=== PATIENT | male | born 2005 | race Caucasian/White ===

== ENCOUNTER 2025-08-04 19:52 | Emergency (ER) | payer OTHER, SELFPAY ==
[2025-08-04] VITALS (7 sets, daily range): BP systolic 127–152; BP diastolic 84–96; BMI 18.8
[2025-08-04 20:11] LABS: Hematocrit 44.5 % (39.0-52.0); Hemoglobin 15.9 g/dL (13.0-18.0); Mean Corp Hgb Conc. 35.7 g/dL (33.0-37.0); Mean Corpuscular Volume 87.1 fL (80.0-94.0); Nucleated Red Blood Cells % 0 % (-); Platelet Count 214 10^3/uL (130-400); Red Cell Dist. Width 11.4 % (11.5-14.5)
--- NOTE | 2025-08-04 20:13 | PTCARENOTE ---
patient presents to the ED with complaint of syncopal episode witnessed by family lasting about 3 minutes. patient states before the event happened he felt as if he was going to pass out. patient denies history of syncopal episodes, but states he
has had episodes in the past where he has felt faint but never lost consciousness. patient denies chest pain or dizziness.
[2025-08-04 20:37] LABS: ALT (SGPT) 22 U/L (0-50); AST (SGOT) 32 U/L (17-59); Albumin 5.2 g/dl (3.5-5.0); Alkaline Phosphatase 67 U/L (38-126); Blood Urea Nitrogen 8 mg/dl (9-20); Calcium 9.8 mg/dl (8.4-10.2); Carbon Dioxide 29 mmol/L (22-30); Chloride 99 mmol/L (98-107); Estimated Creatinine Clearance 96 ml/min; Glucose 109 mg/dl (70-99); Potassium 4.9 mmol/L (3.5-5.1); Sodium 137 mmol/L (135-145); Total Protein 7.6 g/dl (6.3-8.2); eGFR > 60.00
--- NOTE | 2025-08-04 22:54 | ED.GENMED ---
History of Present Illness
General
Chief Complaint: Fainting/Passed Out
Source: patient and family
Exam Limitations: none
Time Seen by Provider: 08/04/25 22:19
Nursing documentation reviewed up to this point in time: agreed with
History of Present Illness
History of Present Illness:
19-year-old male with history of ADHD who presents to the ER with his mother and father for evaluation after syncopal/near syncopal event. Patient reports that around 6 PM this evening he came downstairs and was feeling very lightheaded, laid down
on the counter and nearly passed out. He says that he felt dizzy and was diaphoretic, mildly nauseated. Mother says that he was pale and clammy. It sounds like the entire to the episode lasted for 20 to 30 minutes. Mother is a nurse and was able
to check his vital signs and says that he was normotensive and his heart rate was in the 90s. Patient did not have any chest pain or palpitations, did not have any shortness of breath. No headache. He says that he is completely asymptomatic here
in the ER. Patient says that he had 2 energy drinks earlier today but not have any food today, mother thought that he was hypoglycemic and gave him some food and this seemed to help with his symptoms. Patient has not had any similar issues in the
past. No family history of early cardiac but mother says she has a history of SVT status post ablation. Patient did have a benign murmur as a child and had an echocardiogram in his teens that was reportedly normal according to mother.
Review of Systems
Review of Systems
All Other Systems: ROS reviewed and negative except as documented in HPI and ROS
Constitutional: Denies fever
Respiratory: Denies trouble breathing
Cardiac: Reports diaphoresis and syncope; Denies chest pain or palpitations
ABD/GI: Reports nausea; Denies abdominal pain
: Denies flank pain
Neurological: Reports dizzy; Denies headache
Phy Exam
Physical Exam
Physical Exam:
General: Awake, alert, oriented x3; no acute distress
Head: Normocephalic, atraumatic
Eyes: Conjunctiva normal, pupils equal round and reactive to light bilaterally
Throat: Airway intact, handling secretions
Neck: Trachea midline, supple without meningismus
Lungs: Clear to auscultation bilaterally, no wheezing, rales, rhonchi
Heart: Regular rate and rhythm, no murmurs, gallops, or rubs
Neuro: Cranial nerves grossly intact, speech fluid
Skin: Warm and dry
Extremities: No edema in extremities, equal pulses in all extremities
Scores
Heart Failure Risk
Heart Failure Risk Score: Not Applicable
Heart Score for Chest Pain Patients
STEMI patient?: Not applicable
Withdrawal Assessment of Alcohol
Withdrawal Assessment Completed?: Not applicable
Course
Orders/Labs/Results
Orders:
Orders
08/04/25 19:55
Electrocardiogram (*1) Urgent
Reason for Study: Syncope
08/04/25 19:56
EKG- Treatment ONCE
08/04/25 20:03
CMP [Comprehensive Metabolic Panel] Urgent
Complete Blood Count/With Diff Urgent
Abnormal Lab Results
08/04/25
20:03
MCH 31.1 H pg
(27.0-31.0)
RDW 11.4 L %
(11.5-14.5)
Absolute Neuts (auto) 7.0 H 10^3/uL
(1.4-6.5)
Lymphocytes % 19.9 L %
(20.5-51.1)
BUN 8 L mg/dl
(9-20)
Glucose 109 H mg/dl
(70-99)
Albumin 5.2 H g/dl
(3.5-5.0)
08/04/25 20:03
08/04/25 20:03
Vital Signs
Initial and Last Documented VS:
Initial Vital Signs
BP
141/94
08/04/25 19:55
Last Documented Vital Signs
Pulse Resp BP Pulse Ox
90 25 127/93 100
08/04/25 21:00 08/04/25 21:00 08/04/25 21:00 08/04/25 21:00
MDM/Problems Addressed
Differential Diagnosis Includes:
Dysrhythmia, hypoglycemia, dehydration, vasovagal episode
MDM/Problems Addressed:
19-year-old male with history of ADHD on Adderall presents to the ER for evaluation after near syncopal episode. He did not have any associated chest pain or palpitations, shortness of breath or headache and does not have any symptoms here in the ER
she is asymptomatic here. His mother is a nurse was able to check his vitals during the episode and it sounds like heart rate was in the 90s and he was normotensive. He did not eat very much today and it sounds like his symptoms improved after
mother gave him some food although it did take around 30 minutes for entire episode to resolve. Vital signs here are within acceptable range. Physical exam is as noted. His EKG here shows sinus rhythm with rate in the 90s, no acute ischemic
changes, no Brugada, no delta wave, normal QTc. No family history of early cardiac and it sounds like patient had a prior echocardiogram that was reassuring as a teenager. Labs were sent off including a CBC and a CMP showed no clinically
significant abnormalities. Overall suspect this may have been a hypoglycemic episode due to poor p.o. intake today. In my judgment he is stable for discharge, follow-up with his primary doctor as an outpatient. Patient and family comfortable with
this plan. All questions answered.
*Pulse Oximetry
SaO2: 100
Oxygen Mode of Delivery: Room air
Patient hypoxic: no (100%)
*EKG
Interpreted by ED Provider?: Yes
Heart Rate: 92
Rate: normal
Rhythm: sinus
Foss: normal axis
Interval: normal interval
QRS Pattern: normal QRS
Ischemia: no ischemia
*Critical Care Note
Total Time (30-74mins, 75-104mins- exclusive of procedures): Not Applicable
Data Reviewed
Source: patient and family
ED Attending Note
-
Portions of this chart may have been created with voice recognition software.� Occasional wrong word or��sound alike� substitutions may have occurred due to the inherent limitations of voice recognition software.
Discharge Plan
Departure
Patient with high blood pressure during this ER visit?: Yes
Discharge Problem:
Syncope
Instructions: Syncope (Fainting) (DC)
Prescriptions:
No Action
dextroamphetamine-amphetamine [Adderall] 10 mg Tablet
20 mg PO DAILY
escitalopram oxalate [Lexapro] 10 mg Tablet
10 mg PO DAILY
Referrals:
UNKNOWN - PT DOES,NOT KNOW [Family Provider]
Activity Restrictions/Additional Instructions:
Thank you for visiting the Emergency Department at [facility].
1. Please schedule a follow up appointment as directed. Call first thing tomorrow morning to make an appointment.
2. If indicated, please take your medications as instructed and indicated on discharge paperwork.
3. If any of your symptoms do not improve, or persist, or become more severe within 6-12 hours, please return to the emergency department for further care.
4. Please return to the emergency department if you develop a headache, neck pain/stiffness, fever greater than 100.4F, chest pain, shortness of breath, persistent nausea, vomiting, slurred speech, difficulty walking, numbness/tingling, weakness,
signs of infection or any other symptoms that are worrisome to you.
Please call [phone] if you have any questions.
Interventions
Interventions:
*Risk Screen - Suicide Last Done: 08/04/25 19:57
*General Assessment Last Done: 08/04/25 19:57
*Neglect/Abuse Screening Last Done: 08/04/25 19:57
*ED- Fall Risk Assessment Last Done: 08/04/25 19:57
*ED COVID-19 Vaccine History Last Done: 08/04/25 19:57
*ED Influenza Vaccine History Last Done: 08/04/25 19:57
ED- Cardiac Assessment Last Done: 08/04/25 20:12
ED- Neurological Assessment Last Done: 08/04/25 20:12
Discharge Date and Time
Print Language: [place] K[place]
== END 2025-08-04 23:36 | disposition home or self-care (01) ==
LOC: EMR 19:52
PROVIDERS: EMERGENCY PHYSICIAN Emergency Medicine
DX: R55 Syncope and collapse (principal); Z82.49 Family history of ischemic heart disease and other diseases of the circulatory system
CPT/HCPCS: 99284; 80053; 85025; 93005

== ENCOUNTER 2025-08-24 03:56 | Emergency (ER) | payer OTHER, SELFPAY ==
[2025-08-24 03:57] VITALS: BP 133/104
--- NOTE | 2025-08-24 04:24 | ED.GENMED ---
History of Present Illness
General
Chief Complaint: Headache
Source: patient
Exam Limitations: none
Time Seen by Provider: 08/24/25 04:18
Nursing documentation reviewed up to this point in time: agreed with
History of Present Illness
History of Present Illness:
The patient is a 19-year-old male with a pmh of adhd, anxiety who presents to the ER today with concerns regarding changes in behavior, headache, and memory issues over the past three weeks. Approximately two weeks ago, the patient experienced
severe headache pain located at the base of the head, persisting for three days. This headache was exacerbated by device usage. The patient describes this pain as severe, with a sense of a possible brain issue. He specifically equates the sensation
to that of an unruptured aneurysm and reports feeling swelling in his head. Patient has no hx of aneursym no family hx of AVM. The patient also experienced blurred vision and nausea during the headaches, but has been headache-free for over two days.
Patient himself states that there have been no behavioral changes. Family reports that behavioral changes include thinking that events have occurred that others deny, though the patient feels certain of these occurrences. He also reports sleep
disturbances, including excessive sleep of up to 14 hours, and increased anxiety related to college classes, later improving. Additionally, the patient acknowledges a reduction in appetite and problems with memory retention.
He has a history of taking Adderall, though he has inconsistently taken it this past week, reducing the dose from 10 mg due to it feeling too strong and taking it inconsistently. The patient has been on Adderall for over two years. The patient also
reports a history of smoking cannabis, recently reduced.
There is no report of head trauma, hallucinations, or suicidal ideation. The patient experienced excessive sweating at night but denies any fever. There is a family concern due to the behavioral changes, and the patients mother, who is a nurse, is
particularly worried. He denies any suicidal or homicidal ideation.
Review of Systems
Review of Systems
All Other Systems: ROS reviewed and negative except as documented in HPI and ROS
Phy Exam
General Physical Exam
General Presentation: well appearing and no apparent distress
General age: appears stated age
ENT Exam
ENT Exam: EOMI
Eye Exam
Eye Exam: PERRL and EOMI
Cardiovascular Exam
Cardiovascular Exam: regular rate/rhythm, no edema and no murmur
Pulmonary Exam
Pulmonary Exam: lungs clear, no respiratory distress, no crackles and no wheezing
Gastrointestinal Exam
Gastrointestinal Exam: normal bowel sounds, non tender and non distended
Neurological Exam
Neurological Exam: alert, oriented x3, CN II-XII intact, no motor deficits, no sensory deficits and speech normal
Skin Exam
Skin Exam: normal color and warm/dry
Psychiatric Exam
Psychiatric Exam: normal mood/affect
Course
Orders/Labs/Results
Orders:
Orders
08/24/25 04:50
CT Head W/o Iv Contrast Urgent
Comment:
Reason For Exam: severe headache, behavioral changes
08/24/25 05:06
Crisis Consult Urgent
Reason for Consult: behavioral changes
08/24/25 05:15
COVID-19 Antigen Urgent
Source: Nasal Swab
Complete Blood Count/With Diff Urgent
Comprehensive Metabolic Panel Urgent
Fentanyl, Urine Urgent
Urine Drug Abuse Screen Urgent
Date Specimen was Collected: 08/24/25
Time Specimen was Collected: 05:05
Influenza A+B Rapid Molecular Urgent
NIRANJAN Source: Nasal Swab
Specimen Description:
Abnormal Lab Results
08/24/25
05:15
WBC 11.1 H 10^3/uL
(4.8-10.8)
RDW 11.0 L %
(11.5-14.5)
Absolute Neuts (auto) 7.6 H 10^3/uL
(1.4-6.5)
Absolute Monos (auto) 0.9 H 10^3/uL
(0.1-0.6)
Glucose 108 H mg/dl
(70-99)
Ur Amphetamines Screen Positive H
(Negative)
U Marijuana (THC) Screen Positive H
(Negative)
08/24/25 05:15
08/24/25 05:15
Vital Signs
Initial and Last Documented VS:
Initial Vital Signs
Temp Pulse Resp BP Pulse Ox
98.8 F 101 16 133/104 94
08/24/25 03:57 08/24/25 03:57 08/24/25 03:57 08/24/25 03:57 08/24/25 03:57
Last Documented Vital Signs
Temp Pulse Resp BP Pulse Ox
98.8 F 79 16 141/93 97
08/24/25 03:57 08/24/25 06:57 08/24/25 06:57 08/24/25 06:57 08/24/25 06:57
MDM/Problems Addressed
Differential Diagnosis Includes:
ddx include tension headache, migraine headache, medication side effect, bipolar disorder, schizoaffective disorder, neurologic infection, marijuana use
MDM/Problems Addressed:
The patient is a 19-year-old male with a pmh of adhd, anxiety who presents to the ER today with concerns regarding changes in behavior, headache, and memory issues over the past three weeks. Mom is concerned because this past week he has not
appeared himself and has appeared to be foggy and has stated some things happened when they did not actually happen. He has also had some increased anxiety per famiy members. Patient himself feels to be at his baseline--he did have a very severe
headache a few days ago and he feels like since then 'his brain reset'. He has no hallucinations. No SI/HI. On my assessment, he is well appearing, in NAD, afebrile, has a reassuring neurologic exam. He went for CT imaging which was normal and had
unremarkable blood work. I suspect his symptoms are related to self adjustment of his medication as well as inconsistency in taking his medication. Patient's mom will call psychiatrist later today. For ongoing concern with brain fog and intermittent
headaches, I also recommended outpatient neurology evaluation. Patient was also seen by crisis and given further resources. Patient stable for discharge.
*Pulse Oximetry
SaO2: 94
Oxygen Mode of Delivery: Room air
Patient hypoxic: no
*Critical Care Note
Total Time (30-74mins, 75-104mins- exclusive of procedures): Not Applicable
ED Attending Note
-
Portions of this chart may have been created with voice recognition software.� Occasional wrong word or��sound alike� substitutions may have occurred due to the inherent limitations of voice recognition software.
Discharge Plan
Departure
Patient Disposition: Home (Routine Discharge)
Date of Disposition: 08/24/25
Time of Disposition: 06:36
Patient with high blood pressure during this ER visit?: Yes
Condition: Good
Discharge Problem:
Behavior disturbance, Headache
Instructions: Headache, Adult (DC), Attention deficit hyperactivity disorder (ADHD) in adults, BLOOD PRESSURE
Prescriptions:
No Action
dextroamphetamine-amphetamine [Adderall] 10 mg Tablet
10 mg PO BID
Rx Instructions:
has not been taking reg.
escitalopram oxalate [Lexapro] 10 mg Tablet
10 mg PO DAILY
albuterol 90 mcg/actuation Aerosol
2 mcg INHALATION Q4 PRN (Reason: wheezing)
epinephrine [Epi E-Z Pen] 0.3 mg/0.3 mL Auto-Injector
0.3 mg IM ONCE PRN (Reason: allergies)
Referrals:
Raphael Moe CRNP [Family Provider, Internal Medicine]
Activity Restrictions/Additional Instructions:
Please follow-up with your psychiatrist. Please take your medications as prescribed.
As discussed, your blood work is unremarkable. Your CAT scan of the head shows no acute intracranial abnormality.
PLEASE RETURN TO THE ER SHOULD YOU DEVELOP CHEST PAIN, SHORTNESS OF BREATH, INTRACTABLE NAUSEA OR VOMITING, WEAKNESS, HALLUCINATIONS, SUICIDIAL OR HOMICIDAL THOUGHTS, OR ANY OTHER SIGNS OR SYMPTOMS WORRISOME TO YOU.
Interventions
Interventions:
*Risk Screen - Suicide Last Done: 08/24/25 03:57
*General Assessment Last Done: 08/24/25 03:57
*Neglect/Abuse Screening Last Done: 08/24/25 04:08
*ED- Fall Risk Assessment Last Done: 08/24/25 04:08
*ED COVID-19 Vaccine History Last Done: 08/24/25 04:08
*ED Influenza Vaccine History Last Done: 08/24/25 04:08
*Nursing Disposition Last Done: 08/24/25 07:01
ED- Neurological Assessment Last Done: 08/24/25 04:08
ED-Psychological Assessment Last Done: 08/24/25 04:08
Discharge Date and Time
Discharge Date/Time: 08/24/25 07:02
Print Language: [place]
[2025-08-24 05:01] VITALS: BMI 17.6
[2025-08-24 05:25] VITALS: BP 146/95
[2025-08-24 05:35] LABS: Hematocrit 44.7 % (39.0-52.0); Hemoglobin 16.1 g/dL (13.0-18.0); Mean Corp Hgb Conc. 36.0 g/dL (33.0-37.0); Mean Corpuscular Volume 85.0 fL (80.0-94.0); Nucleated Red Blood Cells % 0 % (-); Platelet Count 289 10^3/uL (130-400); Red Cell Dist. Width 11.0 % (11.5-14.5)
[2025-08-24 05:51] LABS: COVID-19 Antigen Negative (Negative)
[2025-08-24 06:04] LABS: ALT (SGPT) 18 U/L (0-50); AST (SGOT) 27 U/L (17-59); Albumin 5.0 g/dl (3.5-5.0); Alkaline Phosphatase 79 U/L (38-126); Blood Urea Nitrogen 9 mg/dl (9-20); Calcium 9.8 mg/dl (8.4-10.2); Carbon Dioxide 29 mmol/L (22-30); Chloride 99 mmol/L (98-107); Estimated Creatinine Clearance 102 ml/min; Glucose 108 mg/dl (70-99); Potassium 3.6 mmol/L (3.5-5.1); Sodium 138 mmol/L (135-145); Total Protein 7.6 g/dl (6.3-8.2); eGFR > 60.00
[2025-08-24 06:57] VITALS: BP 141/93
== END 2025-08-24 07:02 | disposition home or self-care (01) ==
LOC: EMR 03:56
PROVIDERS: Physician Assistant; EMERGENCY PHYSICIAN Student in an Organized Health Care Education/Training Program; FAMILY PHYSICIAN Nurse Practitioner Adult Health
DX: F91.9 Conduct disorder, unspecified (principal); R51.9 Headache, unspecified; R03.0 Elevated blood-pressure reading, without diagnosis of hypertension; F90.9 Attention-deficit hyperactivity disorder, unspecified type; F41.9 Anxiety disorder, unspecified; F12.90 Cannabis use, unspecified, uncomplicated; T43.626A Underdosing of amphetamines, initial encounter; Z91.128 Patient's intentional underdosing of medication regimen for other reason
CPT/HCPCS: 99284; 70450; 80053; 80306; 80307; 85025; 87502; 87811